=== PATIENT | female | born 1965 | race African-American/Black ===

== ENCOUNTER 2016-12-22 21:44 | Emergency (ER) | payer MEDICARE, OTHER ==
[~2016-12-22] VITALS: Ht 177.8 cm; Wt 79.5 kg
[~2016-12-22 21:44] MED LIST: LISI-618 PO; QUET50TA PO; TRAZ-147 PO
[2016-12-22] MEDS ORDERED: TRAZ150 PO (21:46)
[2016-12-22] MEDS ORDERED: LISI-661 PO (21:46)
[2016-12-22] MEDS ORDERED: QUET200T PO (21:46)
[2016-12-22 21:52] LABS: GLUCOSE,POINT OF CARE 168 MG/DL (70-110)
[2016-12-22] MEDS ORDERED: METHOCARBAMOL 500 MG TABLET PO ONE (22:30)
[2016-12-22] MEDS ORDERED: KETOROLAC TROMETHAMINE 30 MG/ML VIAL IM ONE (22:30)
[2016-12-22 23:17] VITALS: BP 120/90
== END 2016-12-22 23:36 | disposition home or self-care (01) ==
LOC: EMS 21:46
DX: S93.402A Sprain of unspecified ligament of left ankle, initial encounter (principal); E11.9 Type 2 diabetes mellitus without complications; I10 Essential (primary) hypertension; F17.210 Nicotine dependence, cigarettes, uncomplicated; Z88.5 Allergy status to narcotic agent; X58.XXXA Exposure to other specified factors, initial encounter; Y93.89 Activity, other specified; Y92.89 Other specified places as the place of occurrence of the external cause; Y99.8 Other external cause status
CPT/HCPCS: 73610; 73630; 82962; 96372; 99284; J1885